=== PATIENT | male | born 1960 | race Caucasian/White ===

== ENCOUNTER 2020-12-30 09:46 | Day surgery (SDC) | payer OTHER ==
[~2020-12-30] VITALS: Ht 180.3 cm; Wt 79.4 kg
[~2020-12-30 09:46] MED LIST: BUPIVACAINE/PF 0.5% ONE; LIDOCAINE/PF 1%, 30ML ONE; LISI40TA9 PO
[2020-12-30 10:06] VITALS: BP 137/90
[2020-12-30] MEDS ORDERED: CHLORHEXIDINE 15 ML UDC PO ONE (10:30)
[2020-12-30] MEDS ORDERED: LACTATED RINGERS 1,000 ML IV SCH (10:30)
[2020-12-30 10:45] LABS: ALANINE AMINOTRANSFERASE 34 U/L (12-78); ALBUMIN 3.6 g/dL (3.4-5.0); ANION GAP 4 mmol/L (5-15); CALCIUM 8.7 mg/dL (8.5-10.1); CHLORIDE 107 mmol/L (98-107); CREATININE 0.99 mg/dL (0.7-1.3)
[2020-12-30 10:47] LABS: ALKALINE PHOSPHATASE 56 U/L (45-117); BILIRUBIN,TOTAL 0.5 mg/dL (0.2-1.0)
[2020-12-30] MEDS ORDERED: MIDAZOLAM 1 MG/ML, 2ML ONE (11:51)
[2020-12-30] MEDS ORDERED: FENTANYL PF 100 MCG/2ML ONE ×2 (11:52→13:47)
[2020-12-30] MEDS ORDERED: KETOROLAC 30 MG/1 ML IV PRN (13:00)
[2020-12-30] MEDS ORDERED: HYDROmorphone 2 MG/ML, 1ML IVPush PRN (13:00)
[2020-12-30] MEDS ORDERED: hydrALAzine 20 MG/ML, 1ML IV PRN (13:00)
[2020-12-30] MEDS ORDERED: FENTANYL PF 100 MCG/2ML IV PRN (13:00)
[2020-12-30] MEDS ORDERED: LABETALOL 5MG/ML, 20ML IV PRN (13:00)
[2020-12-30] MEDS ORDERED: DIAZEPAM 5 MG/ML, 2ML IVPush PRN (13:00)
[2020-12-30] MEDS ORDERED: OXYcodone 5 MG/5 ML ORAL.SOL UDC PO PRN (13:00)
[2020-12-30] MEDS ORDERED: ALBUTEROL SULFATE 2.5 MG/3 ML NPPB PRN (13:00)
[2020-12-30] MEDS ORDERED: PROMETHAZINE 25 MG/ML, 1ML IV PRN (13:00)
[2020-12-30] MEDS ORDERED: ACETAMINOPHEN 325 MG TABLET PO PRN (13:00)
[2020-12-30] MEDS ORDERED: MEPERIDINE/PF 25MG/0.5ML IVPush PRN (13:00)
[2020-12-30] MEDS ORDERED: KETOROLAC 30 MG/1 ML ONE (13:22)
[2020-12-30] MEDS ORDERED: SUCCINYLCHOLINE 20 MG/ML, 10ML ONE (13:24)
[2020-12-30] MEDS ORDERED: GLYCOPYRROLATE 0.2MG/1ML, 5ML ONE (13:24)
[2020-12-30] MEDS ORDERED: ROCURONIUM 10MG/ML,5ML ONE (13:24)
[2020-12-30] MEDS ORDERED: CEFAZOLIN 1,000 MG ONE (13:24)
[2020-12-30] MEDS ORDERED: ONDANSETRON 2MG/ML, 2ML ONE (13:24)
[2020-12-30] MEDS ORDERED: DEXAMETHASONE 4 MG/ML, 1ML ONE (13:24)
[2020-12-30] MEDS ORDERED: PROPOFOL 10 MG/ML, 20ML ONE (13:24)
[2020-12-30] MEDS ORDERED: NEOSTIGMINE 1 MG/ML, 10ML ONE (13:24)
[2020-12-30] MEDS ORDERED: OXYcodone 5 MG/5 ML ORAL.SOL UDC ONE (13:47)
[2020-12-30] MEDS ORDERED: ACETAMINOPHEN 650 MG/20.3 ML UDC ONE (13:47)
== END 2020-12-30 15:30 | disposition home or self-care (01) ==
LOC: OUT 09:46
PROVIDERS: ATTEND Orthopaedic Surgery
DX: S46.211A Strain of muscle, fascia and tendon of other parts of biceps, right arm, initial encounter (principal); I10 Essential (primary) hypertension; Z20.822 Contact with and (suspected) exposure to COVID-19; Z79.899 Other long term (current) drug therapy; X50.0XXA Overexertion from strenuous movement or load, initial encounter; Y93.B9 Activity, other involving muscle strengthening exercises; Y92.89 Other specified places as the place of occurrence of the external cause; Y99.8 Other external cause status
CPT/HCPCS: 24340; 36415; 80053; 93005; J0690; J1100; J1885; J2250; J2405; J2704; J2710; J3010; J7120; U0003; U0005; J0330

== ENCOUNTER 2021-04-15 11:17 | Outpatient (CLI) | payer BC, OTHER ==
[~2021-04-15 11:17] MED LIST changes: -BUPIVACAINE/PF 0.5% ONE; -LIDOCAINE/PF 1%, 30ML ONE
[2021-04-15 12:21] LABS: BASOPHILS % (AUTO) 1 % (0-1); EOSINOPHILS % (AUTO) 1 % (1-7); LYMPHOCYTES % (AUTO) 31 % (22-44); MEAN CORPUSCULAR HEMOGLOBIN 30.9 pg (27.5-34.5); MEAN CORPUSCULAR HGB CONC 33.6 g/dL (33.2-36.2); MEAN PLATELET VOLUME 10.5 fL (7.4-10.4); MONOCYTES % (AUTO) 10 % (2-9); NEUTROPHILS % (AUTO) 57 % (42-75); PLATELET COUNT 243 x10^3/uL (130-400); RED BLOOD COUNT 4.81 x10^6/uL (4.38-5.82); RED CELL DISTRIBUTION WIDTH 13.7 % (9.4-14.8)
[2021-04-15 12:23] LABS: CHLORIDE 105 mmol/L (98-107)
[2021-04-15 12:30] LABS: ALANINE AMINOTRANSFERASE 43 U/L (12-78); ALBUMIN 3.7 g/dL (3.4-5.0); ALKALINE PHOSPHATASE 66 U/L (45-117); ANION GAP 5 mmol/L (5-15); BILIRUBIN,TOTAL 0.4 mg/dL (0.2-1.0); CALCIUM 9.3 mg/dL (8.5-10.1); CREATININE 0.89 mg/dL (0.7-1.3); TOTAL PROTEIN 7.4 g/dL (6.4-8.2)
== END 2021-04-15 23:59 | disposition home or self-care (01) ==
LOC: STAR 11:17
PROVIDERS: ATTEND Orthopaedic Surgery
DX: Z01.812 Encounter for preprocedural laboratory examination (principal); Z20.822 Contact with and (suspected) exposure to COVID-19
CPT/HCPCS: 36415; 80053; 85025; 87081; 93005; U0003; U0005

== ENCOUNTER 2021-04-22 12:06 | Day surgery (SDC) | payer BC, OTHER ==
[~2021-04-22] VITALS: Ht 180.3 cm; Wt 80.1 kg
[~2021-04-22 12:06] MED LIST changes: +ACETAMINOPHEN 650 MG/20.3 ML UDC PO PRN; +BISACODYL 10 MG SUPP PR PRN; +CEFAZOLIN PMX 2GM/50ML 50 ML IVPB SCH; +DIPHENHYDRAMINE 25 MG CAPSULE PO PRN; +DOCUSATE 100 MG CAPSULE PO SCH; +EPINEPHRINE 1 MG/ML, 1ML ONE; +HYDROcodone/APAP 5/325 TABLET PO PRN; +KETOROLAC 30 MG/1 ML ONE; +LISINOPRIL 40 MG TABLET PO SCH; +MAGNESIUM HYDROXIDE 8%, 30ML UDC PO PRN; +NS + 20MEQ KCL 1,000 ML IV SCH; +ONDANSETRON 2MG/ML, 2ML IV PRN; +ONDANSETRON 4 MG TABLET PO PRN; +OXYcodone IR 5MG TABLET PO PRN; +ROPIvacaine/PF 0.5%, 20 ML ONE; +ROPIvacaine/PF 0.5%, 30 ML ONE; +SENNA/DOCUSATE TABLET PO PRN; +SODIUM CHLORIDE 0.9% 50 ML ONE; +TRANEXAMIC ACID 100 MG/ML, 10ML ONE; +VANCOMYCIN 1,000 MG ONE; +ZOLPIDEM 5MG TABLET PO PRN
[2021-04-22] MEDS ORDERED: LACTATED RINGERS 1,000 ML IV SCH (12:30)
[2021-04-22] MEDS ORDERED: VANCOMYCIN PER PHARMACY MC PRN (12:30)
[2021-04-22] MEDS ORDERED: CHLORHEXIDINE 15 ML UDC PO ONE (12:30)
[2021-04-22 12:32] VITALS: BP 125/77
[2021-04-22] MEDS ORDERED: GABAPENTIN 300 MG CAPSULE PO ONE (13:00)
[2021-04-22] MEDS ORDERED: ACETAMINOPHEN 500 MG TABLET PO ONE (13:00)
[2021-04-22] MEDS ORDERED: MIDAZOLAM 1 MG/ML, 2ML ONE (13:18)
[2021-04-22] MEDS ORDERED: FENTANYL PF 250 MCG/5ML ONE (13:18)
[2021-04-22] MEDS ORDERED: VANCOMYCIN 1,900 MG in SODIUM CHLORIDE 0.9% 250 ML IV ONE (14:00)
[2021-04-22] MEDS ORDERED: ACETAMINOPHEN 325 MG TABLET PO PRN (15:00)
[2021-04-22] MEDS ORDERED: MIDAZOLAM 1 MG/ML, 2ML IV PRN (15:00)
[2021-04-22] MEDS ORDERED: MEPERIDINE/PF 25MG/0.5ML IVPush PRN (15:00)
[2021-04-22] MEDS ORDERED: OXYcodone 5 MG/5 ML ORAL.SOL UDC PO PRN (15:00)
[2021-04-22] MEDS ORDERED: ALBUTEROL SULFATE 2.5 MG/3 ML NPPB PRN (15:00)
[2021-04-22] MEDS ORDERED: LABETALOL 5MG/ML, 20ML IV PRN (15:00)
[2021-04-22] MEDS ORDERED: PROMETHAZINE 25 MG/ML, 1ML IVPush PRN (15:00)
[2021-04-22] MEDS ORDERED: LIDOCAINE-MPF 2% ,5ML ONE (15:25)
[2021-04-22] MEDS ORDERED: DEXAMETHASONE 4 MG/ML, 1ML ONE (15:26)
[2021-04-22] MEDS ORDERED: PROPOFOL 10 MG/ML, 20ML ONE (15:26)
[2021-04-22] MEDS ORDERED: ROCURONIUM 10MG/ML,5ML ONE (15:26)
[2021-04-22] MEDS ORDERED: GLYCOPYRROLATE 0.2MG/1ML, 5ML ONE (15:26)
[2021-04-22] MEDS ORDERED: NEOSTIGMINE 1 MG/ML, 10ML ONE (15:26)
[2021-04-22] MEDS ORDERED: ONDANSETRON 2MG/ML, 2ML ONE (15:26)
[2021-04-22] MEDS ORDERED: CEFAZOLIN 1,000 MG ONE (15:26)
[2021-04-22] MEDS ORDERED: FENTANYL PF 100 MCG/2ML ONE (15:48)
[2021-04-22] MEDS ORDERED: OXYcodone 5 MG/5 ML ORAL.SOL UDC ONE (15:48)
[2021-04-22] MEDS: FENTANYL PF 100 MCG/2ML IV PRN ×2 (15:54→16:01)
[2021-04-22] MEDS ORDERED: HYDROmorphone 2 MG/ML, 1ML ONE (16:11)
[2021-04-22] MEDS: HYDROmorphone 1 MG/ML, 1ML INJ IVPush PRN ×3 (16:17→16:38)
[2021-04-22] MEDS ORDERED: LABETALOL 5MG/ML, 20ML ONE (16:47)
[2021-04-22] MEDS ORDERED: ASPIRIN 81 MG TABLET EC PO SCH (18:00)
[2021-04-23] MEDS ORDERED: DEXAMETHASONE 4 MG/ML, 1ML IVPush SCH (06:00)
== END 2021-04-22 18:50 | disposition home or self-care (01) ==
LOC: OUT 12:06
PROVIDERS: ATTEND Orthopaedic Surgery
DX: T84.020A Dislocation of internal right hip prosthesis, initial encounter (principal); M65.851 Other synovitis and tenosynovitis, right thigh; M89.551 Osteolysis, right thigh; Y83.8 Other surgical procedures as the cause of abnormal reaction of the patient, or of later complication, without mention of misadventure at the time of the procedure; I10 Essential (primary) hypertension; Z72.89 Other problems related to lifestyle; Z79.899 Other long term (current) drug therapy; Z98.890 Other specified postprocedural states
CPT/HCPCS: 27137; 36415; 72170; 86850; 86900; 97110; 97161; 97166; C1713; C1776; J0171; J0690; J1100; J1170; J1885; J2250; J2405; J2704; J2710; J2795; J3010; J3370; J7050; J7120